=== PATIENT | male | born 1930 | race Caucasian/White ===

== ENCOUNTER 2018-02-16 21:41 | Emergency (ER) | payer MEDICARE, BC ==
[~2018-02-16] VITALS: Ht 172.7 cm; Wt 94.8 kg
[~2018-02-16 21:41] MED LIST: GUAI120L55 PO
[2018-02-16 21:42] VITALS: BP 142/91
[2018-02-16] MEDS ORDERED: CIPR2.5D18 EACHEYE (22:10)
== END 2018-02-16 22:16 | disposition home or self-care (01) ==
LOC: ER 21:42
DX: H10.9 Unspecified conjunctivitis (principal)
CPT/HCPCS: 99283